=== PATIENT | female | born 2000 | race Caucasian/White ===

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

== ENCOUNTER 2021-09-01 02:29 | Inpatient (IN) | payer OTHER ==
[2021-09-01] MEDS: Zofran 4 MG/2 ML VIAL IV PRN ×3 (03:15→11:04)
[2021-09-01] MEDS: Lactated Ringers 1,000 ML IV SCH ×2 (03:15→12:27)
[2021-09-01] MEDS: STADOL 2 MG IV PRN ×2 (03:15→06:31)
[2021-09-01 03:51] LABS: Amphetamine,Urine NEGATIVE (NEGATIVE); Barbiturate,Urine NEGATIVE (NEGATIVE); Benzodiazepine,Urine NEGATIVE (NEGATIVE); Cocaine,Urine NEGATIVE (NEGATIVE); Methadone,Urine NEGATIVE (NEGATIVE); Opiate,Urine NEGATIVE (NEGATIVE); PCP,Urine NEGATIVE (NEGATIVE); THC,Urine NEGATIVE (NEGATIVE)
[2021-09-01] MEDS ORDERED: Lactated Ringers 1,000 ML IV ONE (04:00)
[2021-09-01 04:10] LABS: Absolute Neutrophil Ct (ANC) 18.19 x10^3/uL (1.4-6.9); Basophil (Absolute #) 0.03 x10^3/uL (0-0.4); Eosinophil (Absolute #) 0.01 x10^3/uL (0-0.5); Hematocrit 36.6 % (35-47); Hemoglobin 12.1 g/dL (12.0-16.0); Lymphocyte (Absolute #) 1.24 x10^3/uL (1.0-4.6); Lymphocytes % 6.1 % (24.0-44.0); Mean Cell Volume 80.3 fL (78-100); Mean Corpuscular Hemoglobin 26.5 pg (26-32); Mean Corpuscular Hgb Concent. 33.1 g/dL (32-36); Mean Platelet Volume 13.3 fL (7.5-11.0); Monocyte (Absolute #) 0.65 x10^3/uL (0.0-1.3); Monocytes % 3.2 % (0.0-12.0); Platelet Count 210 x10^3/uL (150-450); Red Blood Count 4.56 x10^6/uL (4.1-5.4); Red Cell Distribution Width 14.2 % (11.5-14.0); White Blood Count 20.3 x10^3/uL (4.0-10.5)
[2021-09-01 04:57] LABS: ABO TYPING O; Antibody Screen NEGATIVE (NEGATIVE); RH TYPING POSITIVE
[2021-09-01] MEDS ORDERED: Ephedrine Sulfate 50 MG/ML IV PRN (05:00)
[2021-09-01] MEDS ORDERED: FENTANYL 2 MCG-BUPIV 0.125%-NS 250 ML Epidur 250 ML EPIDURAL SCH (05:00)
[2021-09-01] MEDS: MAALOX ES 30 ML UNIT DOSE PO PRN ×3 (05:25→22:32)
[2021-09-01] MEDS ORDERED: XYLOCAINE 1% HCL 20 ML MDV IJ PRN (07:00)
[2021-09-01] MEDS ORDERED: PITOCIN 30 UNITS/ LR 500 ML 30 UNITS/500 ML PLAST..BAG IV SCH (07:00)
[2021-09-01 10:36] LABS: Appearance SLIGHTLY CLOUDY (CLEAR); Bilirubin NEGATIVE (NEGATIVE); Glucose NEGATIVE (NEGATIVE); Ketones >=160 (NEGATIVE); RBC LARGE Ery/ul (0-5); Specific Gravity >=1.030 (1.005-1.025)
[2021-09-01 10:37] LABS: Dipstick done @ ? MAIN LAB; Nitrite NEGATIVE (NEGATIVE); Ph 6.5 (5-6); Protein,Urine Dip 100 (Negative); Urine Cultured Indicated? YES; Urobilinogen 0.2 mg/dL (0-1)
[2021-09-01 10:38] LABS: Epithelial Cells RARE /HPF (FEW); Mucus MANY /HPF (NEGATIVE)
[2021-09-01 10:39] LABS: RBC >101 /HPF (0-2)
[2021-09-01] MEDS ORDERED: NORCO 5/325 MG PO PRN (17:42)
[2021-09-01] MEDS ORDERED: LANSINOH 40 GM TOP PRN (17:42)
[2021-09-01] MEDS ORDERED: Mylicon 80MG PO PRN (17:42)
[2021-09-01] MEDS ORDERED: Dermoplast Spray TP PRN (17:42)
[2021-09-01] MEDS: TUCKS TP PRN (22:10)
[2021-09-01] MEDS: MOTRIN 400 MG PO PRN (22:10)
[2021-09-02] MEDS: Docusate Sodium 100 MG PO SCH ×3 (00:13→21:41)
[2021-09-02] MEDS: Lactated Ringers 1,000 ML IV SCH (00:13)
[2021-09-02] MEDS: TYLENOL EXTRA STRENGTH 500 MG PO PRN ×2 (01:17→21:40)
[2021-09-02 04:55] LABS: Absolute Neutrophil Ct (ANC) 17.51 x10^3/uL (1.4-6.9); Basophil (Absolute #) 0.04 x10^3/uL (0-0.4); Eosinophil (Absolute #) 0.01 x10^3/uL (0-0.5); Hematocrit 27.7 % (35-47); Hemoglobin 9.1 g/dL (12.0-16.0); Lymphocyte (Absolute #) 2.23 x10^3/uL (1.0-4.6); Lymphocytes % 10.5 % (24.0-44.0); Mean Cell Volume 81.5 fL (78-100); Mean Corpuscular Hemoglobin 26.8 pg (26-32); Mean Corpuscular Hgb Concent. 32.9 g/dL (32-36); Mean Platelet Volume 13.2 fL (7.5-11.0); Monocyte (Absolute #) 1.39 x10^3/uL (0.0-1.3); Monocytes % 6.5 % (0.0-12.0); Neutrophil % 82.1 % (36.0-66.0); Platelet Count 188 x10^3/uL (150-450); Red Cell Distribution Width 14.6 % (11.5-14.0); White Blood Count 21.3 x10^3/uL (4.0-10.5)
--- NOTE | 2021-09-02 07:53 | PCM.NOTE ---
Date and Time: 09/02/21 075 Subjective Assessment: mild lochia, pain is mild and well controlled. ambulating, tolerating po and has no complaints today Objective Exam General Appearance: no apparent distress Neurologic Exam: alert, oriented x 3 Respiratory Exam: normal breath sounds, lungs clear, No respiratory distress Cardiovascular Exam: regular rate/rhythm, normal heart sounds Gastrointestinal/Abdomen Exam: soft, other (fundus firm below umbilicus), No tenderness, No mass Extremity Exam: normal inspection, normal range of motion OBJECTIVE DATA Vital Signs: Vital Signs - 24 hr Temp Pulse Resp BP BP Pulse Ox 09/02/21 04:00 98.2 F 115 H 18 120/64 97 09/02/21 00:00 98.1 F 113 H 18 122/78 97 09/01/21 22:00 98.2 F 114 H 17 133/90 98 09/01/21 21:00 98 F 117 H 17 137/88 97 09/01/21 20:00 98.3 F 110 H 17 133/78 97 09/01/21 19:14 114 H 18 135/81 09/01/21 18:15 109 H 18 132/82 09/01/21 18:00 111 H 18 129/79 09/01/21 17:45 115 H 18 129/70 09/01/21 17:30 115 H 18 130/62 09/01/21 16:54 20 09/01/21 16:30 144 H 20 149/96 09/01/21 16:00 121 H 20 136/85 09/01/21 15:30 133 H 20 137/95 09/01/21 15:00 139 H 20 134/86 09/01/21 14:30 125 H 20 137/86 09/01/21 14:00 150 H 20 133/73 133/73 09/01/21 13:30 127 H 20 127/89 09/01/21 13:00 131 H 20 137/92 09/01/21 12:30 134 H 20 134/79 09/01/21 12:00 124 H 20 124/93 09/01/21 11:30 150 H 20 138/80 09/01/21 11:00 103 H 20 134/89 09/01/21 10:30 118 H 17 131/96 09/01/21 10:00 111 H 17 126/84 09/01/21 09:30 108 H 17 138/86 09/01/21 09:00 123 H 17 134/82 09/01/21 08:30 104 H 17 128/72 98 09/01/21 08:00 98.5 F 79 17 140/69 140/69 95 Pain Assessment - Last Documented Pain Intensity [Anterior] 1 Pain Intensity 1 Pain Scale Used 0-10 Pain Scale Intake and Output: Intake & Output 08/30/21 08/31/21 09/01/21 09/02/21 11:59 11:59 11:59 11:59 Intake Total 4493 Output Total 450 425 Balance -450 4068 Weight 77.111 kg Lab Results: Lab Results-Last 24 Hours 09/01/21 09/02/21 Range/Units 08:55 04:07 WBC 21.3 H (4.0-10.5) x10^3/uL RBC 3.40 L (4.1-5.4) x10^6/uL Hgb 9.1 L D (12.0-16.0) g/dL Hct 27.7 L (35-47) % MCV 81.5 (78-100) fL MCH 26.8 (26-32) pg MCHC 32.9 (32-36) g/dL RDW 14.6 H (11.5-14.0) % Plt Count 188 (150-450) x10^3/uL MPV 13.2 H (7.5-11.0) fL Gran % 82.1 H (36.0-66.0) % Immature Gran % (Auto) 0.7 H (0.00-0.4) % Nucleat RBC Rel Count 0.0 (0.00-0.1) % Eos # (Auto) 0.01 (0-0.5) x10^3/uL Immature Gran # (Auto) 0.15 H (0.00-0.03) x10^3u/L Absolute Lymphs (auto) 2.23 (1.0-4.6) x10^3/uL Absolute Monos (auto) 1.39 H (0.0-1.3) x10^3/uL Absolute Nucleated RBC 0.00 (0.00-0.01) x10^3u/L Lymphocytes % 10.5 L (24.0-44.0) % Monocytes % 6.5 (0.0-12.0) % Eosinophils % 0.0 (0.00-5.0) % Basophils % 0.2 (0.0-0.4) % Absolute Granulocytes 17.51 H (1.4-6.9) x10^3/uL Basophils # 0.04 (0-0.4) x10^3/uL Urinalys Dipstick Clnc MAIN LAB Urine Color YELLOW (YELLOW) Urine Appearance SLIGHTLY CLOUDY (CLEAR) Urine pH 6.5 (5-6) Ur Specific [place] >=1.030 (1.005-1.025) POC Urine Protein Conf 100 (Negative) Urine Ketones >=160 (NEGATIVE) Urine Nitrite NEGATIVE (NEGATIVE) Urine Bilirubin NEGATIVE (NEGATIVE) Urine Urobilinogen 0.2 (0-1) mg/dL Urine Leukocytes NEGATIVE (NEGATIVE) Urine WBC (Auto) 6-10 (0-5) /HPF Urine RBC (Auto) >101 (0-2) /HPF U Epithel Cells (Auto) RARE (FEW) /HPF Urine Bacteria (Auto) Not Reportable Urine RBC LARGE (0-5) Clarence/ul Urine Mucus (Auto) MANY (NEGATIVE) /HPF Ur Culture Indicated? YES Urine Glucose NEGATIVE (NEGATIVE) mg/dL Multi-Disciplinary Progress Notes: Multi-Disciplinary Progress Notes 09/01/21 17:27 Respiratory Note by Dolores Bradshaw STAND BY FOR MECH STAIN DELIVERY. NO RESPIRATORY INTERVENTION NEEDED AT THIS TIME. Initialized on 09/01/21 17:27 - END OF NOTE Assessment/Plan (1) Vaginal delivery Current Visit: Yes Status: Acute Code(s): O80 - ENCOUNTER FOR FULL-TERM UNCOMPLICATED DELIVERY (2) Second degree perineal laceration during delivery Current Visit: Yes Status: Acute Code(s): O70.1 - SECOND DEGREE PERINEAL LACERATION DURING DELIVERY
[2021-09-02 09:19] LABS: HBsAg Screen Negative (Negative)
[2021-09-02] MEDS: FERREX 150 PO SCH (10:04)
[2021-09-02 10:56] LABS: Slide Review 1 YES
[2021-09-02] MEDS: MOTRIN 400 MG PO PRN (18:17)
[2021-09-03] MEDS: TYLENOL EXTRA STRENGTH 500 MG PO PRN (03:16)
[2021-09-03 08:59] VITALS: O2SAT 98
[2021-09-03] MEDS: FERREX 150 PO SCH (10:38)
[2021-09-03] MEDS: Docusate Sodium 100 MG PO SCH (10:38)
[2021-09-03] MEDS: TUCKS TP PRN (10:43)
--- NOTE | 2021-09-03 11:23 | PCM.DS ---
Discharge Summary Date of Admission: 09/01/21 02:45 Admitting Physician: JIMMY DIAL Consults: Consults on Case 09/01/21 05:00 Notify Anesthesia Provider PRN 09/01/21 18:41 Navigation ONCE Primary Care Provider: JIMMY DIAL Allergies Allergies No Known Drug Allergies Allergy (Verified 09/01/21 03:41) Hospital Summary - Hospital Course Hospital Course: arrived in spont labor at 40wks, delivered vaginally with second degree tear, initially but now tolerating formula with no difficulty - Vitals & Intake/Output Vital Signs: Vital Signs Temperature 97.7 F 09/03/21 08:00 Pulse Rate 82 09/03/21 08:00 Respiratory Rate 18 09/03/21 08:00 Blood Pressure 111/75 09/03/21 08:00 O2 Sat by Pulse Oximetry 98 09/03/21 08:00 Intake & Output: Intake & Output 08/31/21 09/01/21 09/02/21 09/03/21 11:59 11:59 11:59 11:59 Intake Total 4493 1355 Output Total 450 425 1 Balance -450 4068 1354 Weight 77.111 kg - Lab Result Diagrams: 09/02/21 04:07 Micro Results-Entire Visit: Microbiology 09/01/21 08:55 Urine Culture - Preliminary Catherized NO GROWTH TO DATE - Procedures and Test Procedures and Tests throughout Hospitalization: Therapy Orders & Screens 09/01/21 17:28 Standby ROUTINE Comment: Diagnosis: LABOR Discharge Exam General Appearance: no apparent distress, alert Respiratory Exam: normal breath sounds, lungs clear, No respiratory distress Cardiovascular Exam: regular rate/rhythm, normal heart sounds Gastrointestinal/Abdomen Exam: soft, No tenderness, No mass Extremity Exam: normal inspection, normal range of motion Skin Exam: normal color, warm, dry Final Diagnosis/Problem List - Final Discharge Diagnosis/Problem (1) Vaginal delivery Current Visit: Yes Status: Acute Code(s): O80 - ENCOUNTER FOR FULL-TERM UNCOMPLICATED DELIVERY (2) Second degree perineal laceration during delivery Current Visit: Yes Status: Acute Code(s): O70.1 - SECOND DEGREE PERINEAL LACERATION DURING DELIVERY - Discharge Disposition: Home, Self-Care Condition: Stable Prescriptions: No Action Vits96/Iron Fum/Folic [ Tablet] 1 each PO DAILY Follow up with: JIMMY DIAL MD [Primary Care Provider] - 6 weeks
[2021-09-03] MEDS ORDERED: Adacel Vial IM ONE (14:54)
[2021-09-04 01:23] VITALS: BP 130/83; PULSE 109
== END 2021-09-03 21:15 | disposition home or self-care (01) | DRG 807 ==
LOC: OB 02:29 → OBSVTOIN 02:45 → MED SURG 09-02 21:17
PROVIDERS: ADMIT Family Medicine; ATTEND Family Medicine
PROC: 10E0XZZ Delivery of Products of Conception, External Approach (ICD-10-PCS; principal; 2021-09-01)
PROC: 0KQM0ZZ Repair Perineum Muscle, Open Approach (ICD-10-PCS; 2021-09-01)
DX: O70.1 Second degree perineal laceration during delivery (principal); Z37.0 Single live birth; Z3A.40 40 weeks gestation of pregnancy; Z20.828 Contact with and (suspected) exposure to other viral communicable diseases
CPT/HCPCS: 36415; 80307; 81003; 81015; 85025; 86850; 86900; 86901; 87086; 87340; 90715; 94799; J0595; J2405; J2590; A9270-GY

== ENCOUNTER 2022-11-13 12:49 | Observation (INO) | payer BC, OTHER ==
[2022-11-13 14:31] VITALS: BP 125/77; RESP 18; TEMP 98.7
== END 2022-11-13 14:15 | disposition home or self-care (01) ==
LOC: OB 12:49
PROVIDERS: ADMIT Family Medicine; ATTEND Family Medicine
DX: Z34.83 Encounter for supervision of other normal pregnancy, third trimester (principal); Z3A.37 37 weeks gestation of pregnancy; Z59.10 Inadequate housing, unspecified; Z59.811 Housing instability, housed, with risk of homelessness
CPT/HCPCS: 84112; G0378; G0379

== ENCOUNTER 2024-12-24 12:29 | Inpatient (IN) | payer OTHER ==
[2024-12-24] MEDS ORDERED: Ephedrine Sulfate 50 MG/ML IV PRN (13:28)
[2024-12-24] MEDS ORDERED: STADOL 2 MG IV PRN (13:28)
[2024-12-24] MEDS ORDERED: XYLOCAINE 1% HCL 20 ML MDV IJ PRN (13:28)
[2024-12-24] MEDS ORDERED: Nubain 10 MG/ML IV PRN (13:28)
[2024-12-24] MEDS ORDERED: Lactated Ringers 1,000 ML IV ONE (13:55)
[2024-12-24] MEDS: Lactated Ringers 1,000 ML IV ONE (13:58)
[2024-12-24 14:10] LABS: Glucose, Urine Negative (Negative); Protein,Urine Dip Trace (Negative); RBC 0-2 /HPF (0-5)
[2024-12-24 14:11] LABS: BASOPHIL % 0.2 % (0.1-1.2); Basophil (Absolute #) 0.04 x10^3/uL (0.01-0.08); Eosinophil (Absolute #) 0.21 x10^3/uL (0.04-0.36); Hematocrit 33.8 % (34.1-44.9); Hemoglobin 10.3 g/dL (11.2-15.7); IMMATURE GRAN # 0.26 x10^3u/L (0.001-0.031); IMMATURE GRAN % 1.3 % (0.001-0.429); Lymphocyte (Absolute #) 2.57 x10^3/uL (1.18-3.74); Mean Corpuscular Hemoglobin 24.5 pg (25.6-32.2); Mean Corpuscular Hgb Concent. 30.5 g/dL (32.2-35.5); Monocyte (Absolute #) 1.40 x10^3/uL (0.24-0.86); NUCLEATED RBC # 0.00 x10^3u/L (0.00-0.012); NUCLEATED RBC % 0.0 % (0.00-0.2); Platelet Count 216 x10^3/uL (182-369); Red Blood Count 4.20 x10^6/uL (3.93-5.22); White Blood Count 20.2 x10^3/uL (3.98-10.04)
[2024-12-24] MEDS: FENTANYL 2 MCG-BUPIV 0.125%-NS 250 ML Epidur 250 ML EPIDURAL SCH (14:18)
[2024-12-24] MEDS: Zofran 4 MG/2 ML VIAL IV PRN (14:19)
[2024-12-24 14:21] LABS: Amphetamine,Urine NEGATIVE (NEGATIVE); Barbiturate,Urine NEGATIVE (NEGATIVE); Benzodiazepine,Urine NEGATIVE (NEGATIVE); Cocaine,Urine NEGATIVE (NEGATIVE); Methadone,Urine NEGATIVE (NEGATIVE); Opiate,Urine NEGATIVE (NEGATIVE); PCP,Urine NEGATIVE (NEGATIVE); THC,Urine NEGATIVE (NEGATIVE)
[2024-12-24] MEDS: Lactated Ringers 1,000 ML IV SCH (14:56)
[2024-12-24 14:58] LABS: ABO TYPING O; RH TYPING POSITIVE
[2024-12-24] MEDS: PITOCIN 30 UNITS/ LR 500 ML 30 UNITS/500 ML PLAST..BAG IV SCH (17:07)
[2024-12-24] MEDS ORDERED: Dulcolax 10 MG SUPP PR PRN (17:39)
[2024-12-24] MEDS ORDERED: CORTISONE 1% CREAM TP PRN (17:39)
[2024-12-24] MEDS ORDERED: Mylicon 80MG PO PRN (17:39)
[2024-12-24] MEDS ORDERED: Anucort-HC SUPPOSITORY PR PRN (17:39)
[2024-12-24] MEDS: Dermoplast Spray TP PRN (18:43)
[2024-12-24] MEDS: TUCKS TP PRN (18:43)
[2024-12-24] MEDS: MOTRIN 400 MG PO PRN (20:57)
[2024-12-24] MEDS: Docusate Sodium 100 MG PO SCH (20:57)
[2024-12-24] MEDS: TYLENOL EXTRA STRENGTH 500 MG PO PRN (23:59)
[2024-12-25 05:42] LABS: BASOPHIL % 0.2 % (0.1-1.2); Basophil (Absolute #) 0.04 x10^3/uL (0.01-0.08); Eosinophil (Absolute #) 0.19 x10^3/uL (0.04-0.36); Hematocrit 29.7 % (34.1-44.9); Hemoglobin 9.2 g/dL (11.2-15.7); IMMATURE GRAN # 0.20 x10^3u/L (0.001-0.031); IMMATURE GRAN % 1.0 % (0.001-0.429); Lymphocyte (Absolute #) 3.52 x10^3/uL (1.18-3.74); Mean Corpuscular Hemoglobin 24.9 pg (25.6-32.2); Mean Corpuscular Hgb Concent. 31.0 g/dL (32.2-35.5); Monocyte (Absolute #) 1.43 x10^3/uL (0.24-0.86); NUCLEATED RBC # 0.00 x10^3u/L (0.00-0.012); NUCLEATED RBC % 0.0 % (0.00-0.2); Platelet Count 200 x10^3/uL (182-369); Red Blood Count 3.70 x10^6/uL (3.93-5.22); White Blood Count 20.2 x10^3/uL (3.98-10.04)
[2024-12-25] MEDS: FERREX 150 PO SCH (09:11)
[2024-12-25 12:04] VITALS: O2SAT 99
[2024-12-26 01:18] VITALS: RESP 18; TEMP 97.8
[2024-12-26] MEDS: Adacel Vial IM ONE (06:17)
[2024-12-26 08:14] LABS: RPR Non Reactive (Non Reactive)
--- NOTE | 2024-12-26 08:26 | PCM.DS ---
Discharge Summary Date of Admission: 12/24/24 16:15 Admitting Physician: JIMMY DIAL Consults: Consults on Case 12/24/24 13:30 Notify Anesthesia Provider PRN 12/24/24 17:51 Navigation ONCE 12/25/24 17:23 OB Social Determinants of Health Referal ONCE Primary Care Provider: JIMMY DIAL Allergies Allergies No Known Drug Allergies Allergy (Verified 09/01/21 03:41) Hospital Summary - Hospital Course Hospital Course: patient arrived in spontaneous labor at 39wks, had uncomplicated vaginal delivery. no problems or concerns - Vitals & Intake/Output Vital Signs: Vital Signs Temperature 97.8 F 12/26/24 01:17 Pulse Rate 89 12/26/24 01:17 Respiratory Rate 18 12/26/24 01:17 Blood Pressure 115/73 12/26/24 01:17 O2 Sat by Pulse Oximetry 99 12/26/24 01:17 Intake & Output: Intake & Output 12/23/24 12/24/24 12/25/24 12/26/24 11:59 11:59 11:59 11:59 Intake Total 4850 1500 Output Total 200 Balance 4650 1500 Weight 79.379 kg - Lab Result Diagrams: 12/25/24 05:38 Lab Results-Last 24 Hrs: Lab Results-Last 24 Hours 12/24/24 Range/Units 13:47 RPR Non Reactive (Non Reactive) Micro Results-Entire Visit: Microbiology 12/24/24 14:00 Urine Culture - Preliminary Urine, Void NO GROWTH TO DATE - Procedures and Test Procedures and Tests throughout Hospitalization: Therapy Orders & Screens 12/24/24 18:00 Standby ROUTINE Comment: Diagnosis: IUP Discharge Exam General Appearance: no apparent distress Neurologic Exam: alert, oriented x 3 Respiratory Exam: normal breath sounds, lungs clear, No respiratory distress Cardiovascular Exam: regular rate/rhythm, normal heart sounds Gastrointestinal/Abdomen Exam: soft, No tenderness, No mass Extremity Exam: normal inspection, normal range of motion Skin Exam: normal color, warm, dry Final Diagnosis/Problem List - Final Discharge Diagnosis/Problem (1) Vaginal delivery Current Visit: No Status: Acute Code(s): O80 - ENCOUNTER FOR FULL-TERM UNCOMPLICATED DELIVERY - Discharge Disposition: Home, Self-Care Condition: Stable Prescriptions: Continue Vits96/Iron Fum/Folic [ Tablet] 1 each PO DAILY Omeprazole 20 mg PO Docusate Sodium 100 mg [Docusate Sodium 100 MG] 100 mg PO Citalopram Hydrobromide [Celexa] 10 mg PO Discontinued Doxylamine Succinate/Vit B6 [Diclegis Dr 10-10 mg Tablet] Follow up with: JIMMY DIAL MD [Primary Care Provider, [facility]ILY [facility]ICE] - 6 weeks
[2024-12-26 08:59] VITALS: BP 111/75; PULSE 68
== END 2024-12-26 14:05 | disposition home or self-care (01) | DRG 807 ==
LOC: OB 12:29 → OBSVTOIN 16:15
PROVIDERS: ADMIT Family Medicine; ATTEND Family Medicine
PROC: 10E0XZZ Delivery of Products of Conception, External Approach (ICD-10-PCS; principal; 2024-12-24)
DX: O80 Encounter for full-term uncomplicated delivery (principal); Z37.0 Single live birth; Z3A.39 39 weeks gestation of pregnancy